=== PATIENT | female | born 1955 | race Caucasian/White ===

== ENCOUNTER 2018-11-30 16:32 | Inpatient (IN) | payer OTHER, MEDICARE ==
[~2018-11-30] VITALS: Ht 172.7 cm; Wt 85.3 kg
--- NOTE | 2018-11-30 16:33 | NUR ---
PT BIBA ALS TO BED 10
[2018-11-30 16:35] VITALS: BP 147/60
--- NOTE | 2018-11-30 16:42 | NUR ---
Kelvin katz in [facility] - 11/30/18 at 1649 by MED1 DARLENE FROM HOME C/O FEVER & N/V X 2DAYS.
[2018-11-30] MEDS ORDERED: NACL 0.9% 1,000 ML IV SCH (17:00)
--- NOTE | 2018-11-30 17:01 | NUR ---
63/F BIBA FROM HOME. PATIENT HYPERVENTILATING , VERY ANXIOUS. NAUSEA/VOMITING AT HOME. PER SCHOOL SUPERINTENDENT,PATIENT NOT ANSWERING QUESTIONS. FAMILY AT BEDSIDE. NSS 250 FIELD,BS FIELD 130,EKG DONE FIELD S.TACH. HX: HTN, ASTHMA, CELEAC DISEASE, BILAT. BREAST CANCER, ROSANA MASTECTOMY & THROAT CA. PER CANCER FREE. Addendum: 11/30/18 at 1716 by [facility] PORTACATH LEFT CHEST
[2018-11-30] MEDS ORDERED: OMEP20TA56 PO (17:38)
[2018-11-30] MEDS ORDERED: TRAM50TA1 PO (17:38)
[2018-11-30] MEDS ORDERED: CYCL10TA13 PO (17:38)
[2018-11-30] MEDS ORDERED: ERGO500028 PO (17:38)
[2018-11-30] MEDS ORDERED: NAPR-54 PO (17:38)
[2018-11-30] MEDS ORDERED: HYDR200T5 PO (17:38)
--- NOTE | 2018-11-30 17:55 | NUR ---
TRIED PORTCATH X TWICE; CAN'T ACCESS. NOTIFIED DR REESE.
--- NOTE | 2018-11-30 17:59 | NUR ---
LAB AT BEDSIDE.
[2018-11-30] MEDS ORDERED: PRAV80TA PO (18:13)
[2018-11-30] MEDS ORDERED: NIAC500T6 PO (18:13)
[2018-11-30] MEDS ORDERED: ASCO500T45 PO (18:15)
[2018-11-30] MEDS ORDERED: MULT1SGL58 PO (18:15)
--- NOTE | 2018-11-30 18:23 | NUR ---
PT CAN'T URENATE AT THIS TIME.
[2018-11-30 18:24] LABS: BASOPHILS % (AUTO) 0.5 % (0.0-2.0); EOSINOPHILS % (AUTO) 0.3 % (0.0-4.0); HEMATOCRIT 45.7 % (36-48); HEMOGLOBIN 15.1 g/dL (12.0-16.0); LYMPHOCYTES % (AUTO) 14.5 % (20.5-51.1); MEAN CORPUSCULAR HEMOGLOBIN 30 pg (27-31); MEAN CORPUSCULAR HGB CONC 33 g/dL (33-37); MEAN CORPUSCULAR VOLUME 91.2 fL (80-94); MONOCYTES # (AUTO) 0.5 K/uL (0.8-1.0); MONOCYTES % (AUTO) 6.5 % (1.7-9.3); NEUTROPHILS # (AUTO) 5.5 K/uL (1.8-7.7); NEUTROPHILS % (AUTO) 78.2 % (42.2-75.2); PLATELET COUNT (AUTO) 398 K/uL (140-450); RED BLOOD CELL COUNT(AUTO) 5.01 MIL/uL (4.20-5.40); RED CELL DISTRIBUTION WIDTH 14.3 % (11.6-13.7)
[2018-11-30 18:32] LABS: ANION GAP 24.8 (8-16); CARBON DIOXIDE 20.1 mmol/L (21-32); CREATININE 1.1 mg/dL (0.6-1.3); POTASSIUM 3.9 mmol/L (3.5-5.1)
[2018-11-30 18:34] LABS: ALBUMIN 4.4 g/dL (3.4-5.0); TOTAL BILIRUBIN 0.6 mg/dL (0.0-1.0)
--- NOTE | 2018-11-30 18:34 | NUR ---
Patient being reevaluated by DR REESE at bedside.
[2018-11-30 18:39] LABS: PROTHROMBIN TIME 10.5 secs (10.8-13.4)
[2018-11-30] MEDS ORDERED: NACL 0.9% 1,500 ML IV ONE (18:50)
--- NOTE | 2018-11-30 19:05 | NUR ---
CAN'T ACCESS PORTACATH AT THIS TIME AND PT CAN'T URENATE AT THIS TIME. . NOTIFIED DR REESE.
--- NOTE | 2018-11-30 19:10 | NUR ---
PT LYING IN BED, VITALS STABLE. PT HAS SOME CONFUSION. PT IS UNABLE TO URINATE IN A BEDPAN. ER MD MADE AWARE. FAMILY AT BEDSIDE.
--- NOTE | 2018-11-30 19:13 | NUR ---
Pt report given to RIA CHO. Transfer of care at this time.
[2018-11-30] MEDS ORDERED: LORazepam 2 MG/ML VIAL IM/IVP PRN (19:20)
[2018-11-30] MEDS ORDERED: DOCUSATE SODIUM 100 MG GELCAP PO PRN (19:20)
[2018-11-30] MEDS ORDERED: MORPHINE SULFATE 2 MG/ML SYR IVP PRN ×2 (19:20→22:20)
[2018-11-30] MEDS ORDERED: ACETAMINOPHEN 325 MG TAB PO PRN (19:20)
[2018-11-30] MEDS ORDERED: HYDROcodone/APAP 5/325 MG 1 TAB TAB PO PRN (19:20)
[2018-11-30] MEDS ORDERED: ZOLPIDEM 5 MG TAB PO PRN (19:20)
[2018-11-30] MEDS ORDERED: ONDANSETRON 4 MG/2 ML VIAL IM/IVP PRN (19:20)
--- NOTE | 2018-11-30 19:30 | NUR ---
f/c inserted, pt tolerated well.
--- NOTE | 2018-11-30 19:45 | NUR ---
DUE TO HAVING A BILATERAL MASTECTOMY, UNABLE TO USE BILATERAL ARMS FOR PERIPHERAL VEIN. UNABLE TO INSERT UNABLE AFTER UNSUCCESFUL ATTEMPTS. ER MD MADE AWARE. WILL SEND PT TO ICU WITHOUT A LINE PER MD.
[2018-11-30] MEDS ORDERED: LORazepam 2 MG/ML VIAL IM ONE (19:55)
[2018-11-30 20:11] LABS: APPEARANCE,URINE CLEAR (CLEAR); BILIRUBIN,URINE NEGATIVE (NEGATIVE); BLOOD, URINE NEGATIVE (NEGATIVE); COLOR,URINE YELLOW (YELLOW); LEUKOCYTE ESTERASE ,URINE NEGATIVE (NEGATIVE); NITRITE, URINE NEGATIVE (NEGATIVE); PH,URINE 8.5 (5.0-9.0); UGLUCOSE NEGATIVE (NEGATIVE)
[2018-11-30 20:17] LABS: BARBITURATE, URINE NEG. ng/ml (NEG <=200); BENZODIAZEPINE, URINE NEG. ng/mL (NEG <=200); CANNABINOID, URINE NEG. ng/mL (NEG <=50); COCAINE, URINE NEG. ng/mL (NEG <=300); OPIATE, URINE NEG. ng/mL (NEG <=2000); PHENCYCLIDINE SCREEN,URINE NEG. ng/mL (NEG <=25)
[2018-11-30 20:25] VITALS: BP 127/61
--- NOTE | 2018-11-30 20:25 | NUR ---
RECEIVED PT FROM ER VIA TYRON. PT ALOC. UNABLE TO VERBALIZE NEEDS. CC: SOB W/ NAUSEA AND VOMITING. AFEBRILE. LABORED BREATHING. CLEAR BILATERALLY. [phone]/87-95% RA. ST ON MONITOR. PERIPHERAL PULSES X4 EXTREMITIES. ABD NONDISTENDED SOFT. PT NPO EXCEPT MEDS. NO IV ACCESS. MEDIPORT ON LEFT CHEST. LARA CATHETER IN PLACE. SKIN INTACT. BED IN LOWEST POSITION. WILL CONTINUE TO MONITOR.
--- NOTE | 2018-11-30 20:25 | NUR ---
Patient will be admitted to care of DR. CARRENO. Admited to ICU. Will go to room2. Belongings list completed. Report to Althea CHO.
--- NOTE | 2018-11-30 20:25 | NUR ---
Pt report given to TRANG CHO. Transfer of care at this time.VSS
--- NOTE | 2018-11-30 20:35 | NUR ---
RT AT BEDSIDE AT THIS TIME FOR ABG
[2018-11-30 20:48] LABS: MAGNESIUM 1.7 mg/dL (1.8-2.4); THYROID STIMULATING HORMONE 24.57 uIU/mL (0.34-3.74)
[2018-11-30 20:50] LABS: PHOSPHORUS 0.9 mg/dL (2.5-4.9)
--- NOTE | 2018-11-30 20:55 | NUR ---
PACHECO, DR. POLLARD, AND DR. LUO AT BEDSIDE AT THIS TIME
--- NOTE | 2018-11-30 20:57 | NUR ---
DR. LUO EXPLAINED PROCEDURE FOR CENTRAL LINE TO . EXPLAINED RISK VS. BENEFITS. AWAITING CONSENT.
[2018-11-30] MEDS ORDERED: LORazepam 2 MG/ML VIAL IM/IVP SCH (21:00)
--- NOTE | 2018-11-30 21:00 | NUR ---
CONSENT STILL NOT SIGNED. AWAITING CONSENT FROM . PT MORE ALERT AND ASKS QUESTIONS. DR. LUO AT BEDSIDE EXPLAINING RISK VS. BENEFITS.
[2018-11-30] MEDS ORDERED: HYDROmorphone 1 MG/ML AMP IVP SCH (21:15)
--- NOTE | 2018-11-30 21:20 | NUR ---
PT IS MORE ALERT. ABLE TO VERBALIZE NEEDS. SOME EPISODES OF CONFUSION NOTED.
[2018-11-30] MEDS ORDERED: SODIUM PHOSPHATE 15 MMOLE in NACL 0.9% 250 ML IV SCH (21:30)
[2018-11-30] MEDS ORDERED: MORPHINE SULFATE 4 MG/ML SYR IM/IVP SCH (21:30)
[2018-11-30 22:00] VITALS: BP 123/90
[2018-11-30] MEDS ORDERED: DEXTROSE 50% 50 ML SYR IVP PRN (22:15)
[2018-11-30] MEDS ORDERED: INSULIN LISPRO SLIDING SCALE 100 UNITS/ML VIAL SUBQ PRN (22:15)
--- NOTE | 2018-11-30 22:35 | NUR ---
CONSENT FOR CENTRAL LINE INSERTION SIGNED BY PT AT BEDSIDE.
--- NOTE | 2018-11-30 22:45 | NUR ---
CENTRAL LINE INSERTION AT BEDSIDE AT THIS TIME. WEB PRESS OPERATOR ASSISTANT AND DR. LUO TO PERFORM PROCEDURE.
--- NOTE | 2018-11-30 23:17 | NUR ---
LEFT IJ CENTRAL LINE PLACED. BLOOD RETURN ON 3 LUMENS. AWAITING XRAY FOR CONFIRMATION.
--- NOTE | 2018-11-30 23:23 | NUR ---
CHEST XRAY AT BEDSIDE FOR CENTRAL LINE PLACEMENT CONFIRMATION
[2018-12-01] VITALS (8 sets, daily range): BP systolic 108–155; BP diastolic 62–87
--- NOTE | 2018-12-01 00:08 | NUR ---
AT BEDSIDE AT THIS TIME
[2018-12-01] MEDS ORDERED: LORazepam 2 MG/ML VIAL IM/IVP PRN (00:15)
--- NOTE | 2018-12-01 00:21 | NUR ---
RECEIVED CRITICAL FROM RADIOLOGY REGARDING LEFT IJ PLACEMENT TERMINATING IN RIGHT [facility]. DR. LUO MADE AWARE.
[2018-12-01] MEDS ORDERED: cefTRIAXone 2,000 MG in DEXTROSE 5% 100 ML IV ONE (00:30)
[2018-12-01] MEDS ORDERED: MAG SULF 2000 MG/WATER PREMIX 50 ML IV SCH (01:00)
--- NOTE | 2018-12-01 01:08 | NUR ---
DR. LUO AT BEDSIDE TO READJUST CENTRAL LINE IN LEFT IJ. RESUTURED IN NEW SITE AND CVP DRESSING CHANGE PERFORMED. XRAY AT BEDSIDE FOR CONFIRMATION OF SITE.
--- NOTE | 2018-12-01 01:10 | NUR ---
LAB AT BEDSIDE AT THIS TIME FOR BLOOD DRAWS.
[2018-12-01] MEDS ORDERED: cefTRIAXone 2,000 MG VIAL ONE (01:23)
[2018-12-01] MEDS: DEXT 5% / NACL 0.45% 1,000 ML IV SCH ×3 (01:33→20:47)
--- NOTE | 2018-12-01 03:58 | NUR ---
PT REFUSES SCDS. EXPLAINED RISK VS. BENEFITS X3. PT STILL REFUSES.
--- NOTE | 2018-12-01 04:43 | NUR ---
LAB AT BEDSIDE AT THIS TIME FOR AM DRAWS. WITHDREW BLOOD VIA CENTRAL LINE
--- NOTE | 2018-12-01 05:22 | NUR ---
RT AT BEDSIDE AT THIS TIME
[2018-12-01] MEDS ORDERED: ALBUTEROL SULFATE/IPRATROPIU 3 ML SOL IH PRN (05:25)
[2018-12-01 05:56] LABS: ANION GAP 14.2 (8-16); CARBON DIOXIDE 26.1 mmol/L (21-32); CREATININE 0.8 mg/dL (0.6-1.3); POTASSIUM 3.3 mmol/L (3.5-5.1)
[2018-12-01 06:11] LABS: CHOL/HDL RATIO 3.3 (1-4.5); MAGNESIUM 2.2 mg/dL (1.8-2.4); PHOSPHORUS 5.9 mg/dL (2.5-4.9)
--- NOTE | 2018-12-01 06:20 | NUR ---
REMOVED LARA AT THIS TIME. PER DR. LUO. PT CONTINENT ABLE TO USED BEDSIDE COMMODE.
[2018-12-01] MEDS ORDERED: PANTOPRAZOLE 40 MG TABEC PO SCH (06:30)
[2018-12-01] MEDS ORDERED: LEVOTHYROXINE 0.025 MG TAB PO SCH (06:30)
--- NOTE | 2018-12-01 06:36 | NUR ---
DR. CURRY AT BEDSIDE AT THIS TIME. UPDATED ON PTS CURRENT CONDITION. WILL CONTINUE TO FOLLOW UP ANY ADDITIONAL ORDERS.
--- NOTE | 2018-12-01 06:42 | NUR ---
PT HAD BM AT THIS TIME SMALL FORMED.
--- NOTE | 2018-12-01 07:05 | NUR ---
ENDORSED CARE TO INCOMING SHIFT FOR CONTINUITY OF CARE. BED IN LOWEST POSITION. CALL LIGHT WITHIN REACH.
--- NOTE | 2018-12-01 07:05 | NUR ---
RECEIVED REPORT FROM MILIEU COORDINATOR RN. PT SLEEPING IN BED AROUSABLE. A/O X4. ABLE TO MAKE NEEDS KNOWN. SKIN DRY AND WARM TO TOUCH. SR ON MONITOR. LUNGS SOUND DIMINISHED. LFA 20G NOTED, REMOVED. SITE INTACT. LIJ TRIPLE LUMEN NOTED. INTACT. FLUSHED. D5%1/2 NS RUNNING AT 100 ML/HR, SODIUM PHOSPHATE INFUSING AT 42.5 ML/HR. ABDOMEN SOFT, ROUD AND NON-TENDER. ACTIVE BOWEL SOUND. DENIES PAIN AT THIS TIME. DENIES MORNING CARE. DENIES TO PUT SCD ON. KEPT HOB ELEVATED. BED IN LOW POSITION LOCKED. WILL CONTINUE TO MONITOR.
[2018-12-01] MEDS: BLOOD GLUCOSE MONITORING 1 DEV DEV FS SCH ×4 (07:30→21:00)
[2018-12-01] MEDS ORDERED: LEVOTHYROXINE 0.075 MG TAB PO SCH (07:30)
[2018-12-01] MEDS ORDERED: POTASSIUM CHLORIDE 40 MEQ, LIDOCAINE 1% 25 MG in NACL 0.9% 250 ML IV SCH (08:00)
--- NOTE | 2018-12-01 08:19 | NUR ---
PATIENT HAS BEEN SCREENED AND CATEGORIZED HIGH NUTRITION RISK. PATIENT WILL BE SEEN WITHIN 1-2 DAYS OF ADMISSION. 12/01/18-12/02/[address]
[2018-12-01 08:27] LABS: BASOPHILS % (AUTO) 0.2 % (0.0-2.0); EOSINOPHILS # (AUTO) 0.1 K/uL (0-0.4); EOSINOPHILS % (AUTO) 0.7 % (0.0-4.0); HEMATOCRIT 38.3 % (36-48); HEMOGLOBIN 12.5 g/dL (12.0-16.0); LYMPHOCYTES # (AUTO) 1.6 K/uL (2.5-16.5); LYMPHOCYTES % (AUTO) 15.4 % (20.5-51.1); MEAN CORPUSCULAR HEMOGLOBIN 30 pg (27-31); MEAN CORPUSCULAR HGB CONC 33 g/dL (33-37); MONOCYTES # (AUTO) 0.9 K/uL (0.8-1.0); MONOCYTES % (AUTO) 8.5 % (1.7-9.3); NEUTROPHILS # (AUTO) 7.7 K/uL (1.8-7.7); NEUTROPHILS % (AUTO) 75.2 % (42.2-75.2); PLATELET COUNT (AUTO) 335 K/uL (140-450); RED BLOOD CELL COUNT(AUTO) 4.16 MIL/uL (4.20-5.40); RED CELL DISTRIBUTION WIDTH 14.7 % (11.6-13.7); WHITE BLOOD COUNT (AUTO) 10.2 K/uL (4.8-10.8)
[2018-12-01] MEDS ORDERED: BUPR200T1 PO (08:27)
[2018-12-01] MEDS ORDERED: LORA-476 PO (08:27)
[2018-12-01] MEDS ORDERED: GABA300C PO ×2 (08:27→16:12)
[2018-12-01] MEDS ORDERED: SYN.1 PO (08:27)
[2018-12-01] MEDS ORDERED: OMEP20TA56 PO ×2 (08:27→16:12)
[2018-12-01] MEDS ORDERED: METH500T14 PO (08:27)
[2018-12-01] MEDS ORDERED: TRAM50TA1 PO (08:27)
[2018-12-01] MEDS ORDERED: EXEM25TA PO (08:27)
[2018-12-01] MEDS ORDERED: traMADol 50 MG TAB PO PRN (08:30)
[2018-12-01] MEDS ORDERED: NON-FORMULARY ITEM (Lorazepam (Ativan) 1 TAB) PO PRN (08:30)
[2018-12-01] MEDS ORDERED: ERGOCALCIFEROL 50,000 IU SGL PO SCH (09:00)
[2018-12-01] MEDS ORDERED: PRAVASTATIN SODIUM PO SCH (09:00)
[2018-12-01] MEDS ORDERED: METOCLOPRAMIDE 10 MG TAB PO PRN ×2 (09:00→16:15)
[2018-12-01] MEDS ORDERED: BUPROPION HCL PO SCH (09:00)
[2018-12-01] MEDS ORDERED: OMEPRAZOLE MAGNESIUM 40 MG PO SCH (09:00)
[2018-12-01] MEDS ORDERED: NON-FORMULARY ITEM (Multivitamin (Multivitamins) 1 CAP) PO SCH (09:00)
[2018-12-01] MEDS ORDERED: CYCLOBENZAPRINE 10 MG TAB PO SCH ×2 (09:00→16:15)
[2018-12-01] MEDS ORDERED: traMADol 50 MG TAB PO SCH (09:00)
[2018-12-01] MEDS ORDERED: EXEMESTANE 25 MG PO SCH (09:00)
[2018-12-01] MEDS ORDERED: GABAPENTIN 300 MG CAP PO SCH ×2 (09:00→17:00)
[2018-12-01] MEDS ORDERED: HYDROXYCHLOROQUINE 200 MG TAB PO SCH (09:00)
[2018-12-01] MEDS: ATORVASTATIN 80 MG TAB PO SCH (09:14)
[2018-12-01] MEDS: GABAPENTIN 300 MG CAP PO SCH ×3 (09:15→17:21)
[2018-12-01] MEDS: MULTIVITAMIN 1 TAB PO SCH (09:15)
[2018-12-01] MEDS: METHOCARBAMOL 500 MG TAB PO SCH ×2 (09:15→20:48)
[2018-12-01] MEDS: buPROPion 100 MG TAB PO SCH (09:16)
[2018-12-01] MEDS: HYDROcodone/APAP 5/325 MG 1 TAB TAB PO PRN ×3 (10:37→21:47)
[2018-12-01] MEDS: PANTOPRAZOLE 40 MG TABEC PO SCH ×2 (10:37→16:15)
--- NOTE | 2018-12-01 10:41 | NUR ---
PT C/O HEADACHE. ADMINISTERED NORCO PER ORDER.
--- NOTE | 2018-12-01 11:00 | NUR ---
ULTRASOUND WAS SCHEDULED IN THE MORNING AROUND 0800 AM. PT EXPRESSED HE FEELINGS TO PHYSICAL THERAPIST THAT SHE WAS NOT HAPPY FOR HER HAD TO WAIT OUTSIDE WHILE PT WAS GETTING ULTRASOUND.
[2018-12-01] MEDS ORDERED: OMEPRAZOLE MAGNESIUM PO SCH (11:30)
--- NOTE | 2018-12-01 12:00 | NUR ---
NO C/O PAIN. VS WNL. NO SOB OR ACUTE RESPIRATORY DISTRESS NOTED. AFEBRILE. BP 120/72. AT THE BEDSIDE. WILL CONTINUE TO MONITOR.
[2018-12-01] MEDS: TRIAMTERENE/HCTZ 37.5/25 MG 1 TAB PO SCH ×2 (12:08→12:32)
--- NOTE | 2018-12-01 12:39 | NUR ---
PT REFUSED SCHEDULED ANTIHYPERTENSIVE MED.
--- NOTE | 2018-12-01 13:25 | NUR ---
12/01/18 RD INITIAL ASSESSMENT COMPLETED PLEASE REFER TO NUTRITION ASSESSMENT UNDER CARE ACTIVITY FOR ESTIMATED NUTRITIONAL NEEDS. 1. CONTINUE 60 GM CCHO DIET TOLERATED 2. RD TO FOLLOW UP ON DM EDUCATION 3. RD TO FOLLOW-UP 3-5 DAYS, MODERATE RISK CHIQUITA MARKHAM, RD
--- NOTE | 2018-12-01 13:39 | NUR ---
CALLED PCP DONELL BRUCE [facility] OFFICE # [phone], MADE REQUEST TO GIVE UPDATED MEDS LIST. RECEIVED MED LIST VIA FAX. PLACED LIST IN THE PT'S CHART. PAGED DR. CURRY. WAITING FOR CALL BACK.
--- NOTE | 2018-12-01 15:30 | NUR ---
ICU BED 3 WAS TALKING OVER PHONE IN [place] WITH FAMILY AT THE BEDSIDE. PT IN BED 2 C/O THAT ITS NOISY TO STAY HERE. PT WANTED TO KNOW WHEN SHE WILL BE TRANSFERRED TO THE FLOOR. PT WAS EXPLAINED THAT ROOM IS NOT AVAILABLE AT THIS TIME IN THE FLOOR. MADE AWARE THAT NURSE WILL F/U TO THE FLOOR IF ANY ROOM AVAILABLE AND LET HER KNOW. CALLED TELEMETRY ROOM WAS NOT AVAILABLE. CHARGE NURSE NOTIFIED NURSING DYNAMIC ETCHING PROCESSOR.
--- NOTE | 2018-12-01 15:41 | NUR ---
NO CHANGE IN LOC. DENIES ANY PAIN OR DISCOMFORT. SATURATING 96% IN ROOM AIR. NO SOB OR ACUTE RESPIRATORY DISTRESS NOTED. AT THE BEDSIDE. WILL CONTINUE TO MONITOR.
[2018-12-01] MEDS ORDERED: CYCL10TA13 PO (16:12)
[2018-12-01] MEDS ORDERED: NITR0.4T2 SL (16:12)
[2018-12-01] MEDS ORDERED: HYDR-133 PO (16:12)
[2018-12-01] MEDS ORDERED: CYAN100T65 PO (16:12)
[2018-12-01] MEDS ORDERED: FLO44 IH (16:12)
[2018-12-01] MEDS ORDERED: LORA10TA19 PO (16:12)
[2018-12-01] MEDS ORDERED: METO-485 PO (16:12)
[2018-12-01] MEDS ORDERED: ALBU117P IH (16:12)
[2018-12-01] MEDS ORDERED: NITROGLYCERIN 0.4 MG TAB SL SCH (16:15)
[2018-12-01] MEDS ORDERED: NAPROXEN 500 MG TAB PO PRN (16:15)
[2018-12-01] MEDS ORDERED: CYCLOBENZAPRINE 10 MG TAB PO PRN (17:15)
[2018-12-01] MEDS: CYCLOBENZAPRINE 10 MG TAB PO SCH (17:21)
--- NOTE | 2018-12-01 18:05 | NUR ---
PT TRANSFERRED TO TELE 118 VIA BED ON STABLE CONDITION. REPORT GIVEN TO MARQUIS JANSEN.
--- NOTE | 2018-12-01 18:15 | NUR ---
RECEIVED BEDSIDE REPORT FROM ICU NURSE KIRSTIE. PATIENT AAOX4. PATIENT ON TELE MONITOR AND STANDARD PRECAUTIONS. PATIENT AMBULATORY AND SKIN INTACT. CENTRAL LINE L IJ IN PLACE, PATENT CLEAN DRY AND INTACT INFUSING D5 1/2 NS AT 100. PATIENT ON ROOM AIR, WITH NO DISTRESS NOTED. FALL RISK PROTOCOL IN PLACE. WILL CONTINUE TO MONITOR.
--- NOTE | 2018-12-01 19:00 | NUR ---
BP OF 169/101. NOTIFIED RESIDENTS. RESIDENTS ORDERED TO GIVE ATIVAN SINCE PATIENT IS ANXIOUS. WILL ENDORSE TO TRAIN INSPECTOR NURSE ATIVAN ORDER FOR BP.
--- NOTE | 2018-12-01 19:10 | NUR ---
GAVE REPORT TO PHYSICAL MEDICINE TEACHER NURSE ALEXSANDER. PATIENT ENDORSED IN STABLE CONDITION. Addendum: 12/01/18 at 1920 by Nora Flower RN ENDORSED TO PHYSICAL MEDICINE TEACHER NURSE DOCTORS ORDER FOR ATIVAN FOR ANXIETY AND HIGH BP.
--- NOTE | 2018-12-01 19:11 | NUR ---
RECEIVED BEDSIDE REPORT AM SHIFT NURSE. PATIENT AAOX4. PATIENT ON TELE MONITOR. PATIENT AMBULATORY TO BEDSIDE COMMODE VIODED 1X, CLEAR YELLOW URINE. WITH CENTRAL LINE L IJ IN PLACE, PATENT CLEAN DRY AND INTACT INFUSING D5 1/2 NS AT 100. PATIENT ON ROOM AIR, WITH NO DISTRESS NOTED. NO COMPLAINTS OF PAIN AT THIS TIME. FALL RISK PROTOCOL IN PLACE. WILL CONTINUE TO MONITOR.
--- NOTE | 2018-12-01 20:40 | NUR ---
Ux Visual Designer Notes: I attempted to met with Patient for a screen and ask to confirm some of her information. Patient was not cooperative Stated " I dont want to talk to anyone and answer any questions now may be tomorrow I have a headache" Patient declined to continue meeting.
[2018-12-01] MEDS: buPROPion 150 MG TABER PO SCH (20:48)
--- NOTE | 2018-12-01 21:43 | NUR ---
PT REFUSED BLOOD GLUCOSE MONITORING AFTER 2X ATTEMPT[address] HERRERA AWARE EARLIER INFORMED HER
--- NOTE | 2018-12-01 21:46 | NUR ---
INSTRUCTED PT ON SPUTUM SAMPLE. LEFT SPUTUM CUP AT BEDSIDE FOR PT. WILL CONT TO MONITOR PT.
[2018-12-01] MEDS: LORazepam 1 MG TAB PO PRN (21:47)
--- NOTE | 2018-12-01 21:47 | NUR ---
PT IS ANXIOUS, FAMILY AT BEDSIDE. DR. LUO AT BEDSIDE AT 2139, EXPLAINED TO PT THE DIAGNOSIS, ON THE PORTACATH TO WHY IT WAS NOT USED AT THIS TIME. RE: PATIENT ASKING TO TAKE OFF THE R IJ AND ACCESS ON THE PORTACATH. GAVE ATIVAN AND NORCO AT 2146. PT C/O OF 04/27 HEADACHE
[2018-12-02] VITALS: BP 110/69
--- NOTE | 2018-12-02 | NUR ---
NO CHANGE IN LOC. DENIES ANY PAIN OR DISCOMFORT. SATURATING 95% IN ROOM AIR. NO SOB OR ACUTE RESPIRATORY DISTRESS NOTED. WILL CONTINUE TO MONITOR.
[2018-12-02] MEDS: LORazepam 1 MG TAB PO PRN (03:51)
--- NOTE | 2018-12-02 03:51 | NUR ---
PT ANXIOUS, BUT THIS TIME PT ASKED FOR ATIVAN. ATIVAN GIVEN Q4 PRN
[2018-12-02 04:00] VITALS: BP 121/74
[2018-12-02] MEDS: HYDROcodone/APAP 5/325 MG 1 TAB TAB PO PRN (05:44)
[2018-12-02] MEDS: DEXT 5% / NACL 0.45% 1,000 ML IV SCH (05:45)
[2018-12-02] MEDS: BLOOD GLUCOSE MONITORING 1 DEV DEV FS SCH ×2 (05:48→06:54)
[2018-12-02 06:18] LABS: T4 (THYROXINE) 6.2 ug/dL (4.5-12.0)
[2018-12-02] MEDS ORDERED: LEVOTHYROXINE 0.025 MG TAB PO SCH (06:30)
--- NOTE | 2018-12-02 06:53 | NUR ---
WILL ENDORSE TO NEXT SHIFT FOR CONTINUITY OF CARE.
--- NOTE | 2018-12-02 07:00 | NUR ---
RECEIVED BEDSIDE REPORT FROM CARE TRAINER NURSE ALEXSANDER. PATIENT SLEEPING AT THIS TIME. ON ROOM AIR, NO DISTRESS NOTED. CENTRAL LINE LIJ, CLEAN DRY INTACT AND PATENT. SKIN INTACT. ON TELE MONITOR AND STANDARD PRECAUTIONS. FALL RISK PROTOCOL IN PLACE. PATIENT AMBULATORY AND CONTINENT. BED IN LOW POSITION, CALL LIGHT WITHIN REACH. WILL CONTINUE TO MONITOR.
[2018-12-02 07:13] LABS: BASOPHILS % (AUTO) 0.3 % (0.0-2.0); EOSINOPHILS # (AUTO) 0.2 K/uL (0-0.4); EOSINOPHILS % (AUTO) 3.3 % (0.0-4.0); HEMATOCRIT 33.4 % (36-48); LYMPHOCYTES # (AUTO) 1.3 K/uL (2.5-16.5); MEAN CORPUSCULAR HEMOGLOBIN 31 pg (27-31); MEAN CORPUSCULAR HGB CONC 33 g/dL (33-37); MEAN CORPUSCULAR VOLUME 92.7 fL (80-94); MONOCYTES # (AUTO) 0.4 K/uL (0.8-1.0); MONOCYTES % (AUTO) 8.1 % (1.7-9.3); NEUTROPHILS # (AUTO) 3.1 K/uL (1.8-7.7); NEUTROPHILS % (AUTO) 62.3 % (42.2-75.2); PLATELET COUNT (AUTO) 267 K/uL (140-450); RED CELL DISTRIBUTION WIDTH 14.7 % (11.6-13.7)
[2018-12-02 07:20] LABS: ANION GAP 10.5 (8-16); CARBON DIOXIDE 25.9 mmol/L (21-32); CREATININE 0.8 mg/dL (0.6-1.3); POTASSIUM 3.4 mmol/L (3.5-5.1)
[2018-12-02 07:28] LABS: MAGNESIUM 1.8 mg/dL (1.8-2.4); PHOSPHORUS 4.2 mg/dL (2.5-4.9)
[2018-12-02 08:00] VITALS: BP 148/88
[2018-12-02] MEDS: ATORVASTATIN 80 MG TAB PO SCH (08:42)
[2018-12-02] MEDS: METHOCARBAMOL 500 MG TAB PO SCH (08:43)
[2018-12-02] MEDS: CYCLOBENZAPRINE 10 MG TAB PO SCH ×2 (08:45→13:00)
[2018-12-02] MEDS: buPROPion 150 MG TABER PO SCH (08:45)
[2018-12-02] MEDS: GABAPENTIN 300 MG CAP PO SCH ×2 (08:45→13:00)
[2018-12-02] MEDS: buPROPion 100 MG TAB PO SCH (08:45)
[2018-12-02] MEDS: MULTIVITAMIN 1 TAB PO SCH (08:46)
--- NOTE | 2018-12-02 08:48 | NUR ---
ADMINISTERED PRESCRIBED MEDS. PATIENT TOLERATED WELL. WILL CONTINUE TO MONITOR.
[2018-12-02] MEDS ORDERED: OMEPRAZOLE MAGNESIUM 40 MG PO SCH (09:00)
[2018-12-02] MEDS ORDERED: CYANOCOBALAMIN 1,000 MCG TAB PO SCH (09:00)
[2018-12-02] MEDS ORDERED: PANTOPRAZOLE 40 MG TABEC PO SCH (09:00)
[2018-12-02] MEDS ORDERED: CYANOCOBALAMIN 100 MCG TAB PO SCH (09:00)
[2018-12-02] MEDS ORDERED: TRIAMTERENE/HCTZ 37.5/25 MG 1 TAB PO SCH ×2 (09:00)
[2018-12-02] MEDS ORDERED: LORATADINE 10 MG TAB PO SCH (09:00)
--- NOTE | 2018-12-02 09:00 | NUR ---
P.T. NOTES PATIENT REFUSED TO GET OUT OF BED AND PARTICIPATE WITH P.T. STATES "I DON'T NEED PHYSICAL THERAPY, I'M FINE!". PLAN: WE'LL D/C P.T. SERVICES SINCE SHE WILL BE GOING HOME LATER TODAY PER HER NURSE.
[2018-12-02] MEDS ORDERED: SYN.1 PO (09:12)
[2018-12-02] MEDS ORDERED: POTASSIUM CHLORIDE 10 MEQ TABER PO SCH (09:30)
--- NOTE | 2018-12-02 11:12 | NUR ---
ADMINISTERED LEVOTHYROXINE ORDERED BEFORE DISCHARGE. PATIENT STATED SHE WOULD LIKE TO HAVE A DOSE BEFORE SIGNING DISCHARGE PAPERS.
--- NOTE | 2018-12-02 11:15 | NUR ---
PATIENT STATED SHE DOES NOT WANT AN RN TO REMOVE CENTRAL LINE LIJ. SHE REQUESTS THAT MD BE THE ONE TO REMOVE IT. NOTIFIED DOCTOR.
[2018-12-02] MEDS ORDERED: LEVOTHYROXINE 0.1 MG TAB PO SCH (11:30)
--- NOTE | 2018-12-02 13:00 | NUR ---
PATIENT EDUCATED ON DISCHARGE INSTRUCTIONS. TO FOLLOW UP WITH PCP WITHIN 1 WEEK AND TO RETURN TO NEAREST ER WHEN EXPERIENCING SOB, FEVER, PAIN OR MORE. EDUCATED PATIENT ON NEW MEDS AND CONTINUED HOME MEDS, WELL SIDE EFFECTS. CHARGE NURSE HUMAIRA REMOVED CENTRAL LINE IJ. WRIST BANDS REMOVED. TELE MONITOR REMOVED. ANSWERED ALL QUESTIONS AND CONCERNS. PATIENT VERBALIZED UNDERSTANDING. ADEN SAUCEDO WHEELED PATIENT OUT TO MAIN LOBBY.
[2018-12-03] MEDS ORDERED: LEVOTHYROXINE 0.1 MG TAB PO SCH (06:30)
== END 2018-12-02 13:30 | disposition home or self-care (01) | DRG 640 ==
LOC: MED 16:32 → MIC 19:19 → MTU 12-01 18:34
PROVIDERS: ADMIT General Practice; ATTEND General Practice
PROC: 02HV33Z Insertion of Infusion Device into Superior Vena Cava, Percutaneous Approach (ICD-10-PCS; principal; 2018-11-30)
PROC: B548ZZA Ultrasonography of Superior Vena Cava, Guidance (ICD-10-PCS; 2018-11-30)
DX: E86.0 Dehydration (principal); G93.41 Metabolic encephalopathy; R65.10 Systemic inflammatory response syndrome (SIRS) of non-infectious origin without acute organ dysfunction; D68.59 Other primary thrombophilia; E87.3 Alkalosis; E87.2 Acidosis; F41.9 Anxiety disorder, unspecified; D64.9 Anemia, unspecified; E11.40 Type 2 diabetes mellitus with diabetic neuropathy, unspecified; M62.838 Other muscle spasm; E78.5 Hyperlipidemia, unspecified; C10.9 Malignant neoplasm of oropharynx, unspecified; E11.43 Type 2 diabetes mellitus with diabetic autonomic (poly)neuropathy; K31.84 Gastroparesis; E03.9 Hypothyroidism, unspecified; E83.42 Hypomagnesemia; J32.3 Chronic sphenoidal sinusitis; E83.39 Other disorders of phosphorus metabolism; K21.9 Gastro-esophageal reflux disease without esophagitis; R90.82 White matter disease, unspecified; J45.909 Unspecified asthma, uncomplicated; A63.0 Anogenital (venereal) warts; G89.4 Chronic pain syndrome; M79.7 Fibromyalgia; Z85.3 Personal history of malignant neoplasm of breast; Z90.13 Acquired absence of bilateral breasts and nipples; Z79.84 Long term (current) use of oral hypoglycemic drugs; Z88.8 Allergy status to other drugs, medicaments and biological substances; Z79.899 Other long term (current) drug therapy
CPT/HCPCS: 36415; 36600; 70450; 71045; 80048; 80053; 80305; 81003; 82140; 82150; 82550; 82803; 82948; 83036; 83605; 83690; 83735; 83880; 84100; 84436; 84443; 84484; 85025; 85379; 85610; 85730; 87040; 87081; 87086; 93005; 93925; 93970; 96360; 96372; 97530; 99285; G0480; G0482; J0696; J1170; J1642; J1644; J1815; J2001; J2060; J3420; J3475; J3480; J7030; J7060; J7620; Q0092